=== PATIENT | male | born 2000 | race Hispanic/Latino ===

== ENCOUNTER 2020-08-31 18:17 | Emergency (ER) | payer OTHER ==
[2020-08-31] MEDS ORDERED: Ibuprofen 200 MG TAB ONE (18:53)
== END 2020-08-31 20:48 | disposition home or self-care (01) ==
LOC: ERS 18:17
DX: S52.125A Nondisplaced fracture of head of left radius, initial encounter for closed fracture (principal); V00.211A Fall from ice-skates, initial encounter; Y93.21 Activity, ice skating